=== PATIENT | female | born 1965 | race African-American/Black ===

== ENCOUNTER 2024-05-04 00:52 | Emergency (ER) | payer MEDICAID ==
[~2024-05-04] VITALS: Ht 162.6 cm; Wt 65.0 kg
[2024-05-04 00:54] VITALS: BP 130/82; PULSE 87; RESP 16; TEMP 98.4; O2SAT 96
== END 2024-05-04 03:18 | disposition left against medical advice (07) ==
LOC: ER 00:52
DX: R05.9 Cough, unspecified (principal); Z53.21 Procedure and treatment not carried out due to patient leaving prior to being seen by health care provider